=== PATIENT | male | born 1970 | race American Indian/Alaskan Native ===

== ENCOUNTER 2017-09-10 14:08 | Outpatient (CLI) | payer OTHER ==
--- NOTE | 2017-09-10 15:40 | XRay Report ---
XRAY LEFT KNEE 4 THREE VIEWS: 09/10/17 CLINICAL: Left knee pain. FINDINGS: Medial joint space narrowing with a tiny inferior osteophyte. The lateral joint space is normal. Mild patellofemoral joint arthritis with small osteophytes.No joint effusion.Mild prepatellar and infrapatellar anterior soft tissue edema. IMPRESSION: Mild osteoarthritis involving the medial joint and patellofemoral joint.
== END 2017-09-10 14:09 | disposition home or self-care (01) ==
LOC: SPVIMAG 14:08
PROVIDERS: ATTEND Orthopaedic Surgery
DX: M17.12 Unilateral primary osteoarthritis, left knee (principal)